=== PATIENT | female | born 1985 | race Caucasian/White ===

== ENCOUNTER 2020-08-07 22:23 | Emergency (ER) | payer SELFPAY ==
[~2020-08-07] VITALS: Ht 170.2 cm; Wt 62.6 kg
[2020-08-07 22:31] VITALS: BP 118/50
--- NOTE | 2020-08-07 22:31 | NUR ---
TECH AT BEDSIDE FOR WOUND CLEANING
[2020-08-07] MEDS ORDERED: IBUPROFEN 600 MG TABLET ONE (22:38)
[2020-08-07] MEDS ORDERED: BENZOIN COMPOUND TINCT 60 ML BOTTLE ONE (22:48)
--- NOTE | 2020-08-07 22:54 | NUR ---
TECH AT BEDSIDE FOR BENZOIN PROCEDURE
[2020-08-07] MEDS ORDERED: IBUPROFEN 600 MG TABLET PO ONE (23:00)
--- NOTE | 2020-08-07 23:09 | NUR ---
Patient discharged to home in stable condition. Written and verbal after care instructions given. Patient verbalizes understanding of instruction.
== END 2020-08-07 23:10 | disposition home or self-care (01) ==
LOC: ER 22:32
DX: S61.213A Laceration without foreign body of left middle finger without damage to nail, initial encounter (principal); W25.XXXA Contact with sharp glass, initial encounter; Y93.89 Activity, other specified; Y92.098 Other place in other non-institutional residence as the place of occurrence of the external cause; Y99.8 Other external cause status